=== PATIENT | male | born 1955 ===

== ENCOUNTER 2024-04-28 08:16 | Inpatient (IN) | payer OTHER ==
[2024-04-28 08:59] LABS: URINE APPEARANCE Clear; URINE BILIRRUBIN Negative (NEGATIVE); URINE BLOOD Negative; URINE COLOR Yellow; URINE GLUCOSE Negative (NEGATIVE); URINE KETONE Trace (NEGATIVE); URINE LEUKOCYTE Negative; URINE NITRATE Negative; URINE PROTEIN Negative (NEGATIVE); URINE UROBILINOGEN 0.2 E.U./dl
[2024-04-28 09:01] LABS: URINE RBC 4.2 uL (0.0-20.8); URINE WBC 2.1 uL (0.0-23.2)
[2024-04-28 09:02] LABS: HEMATOCRIT 41.1 % (39.0-48.0); HEMOGLOBIN 13.8 g/dL (13-16.00); MEAN CELL VOLUME 94.7 fL (80.0-100.00); MEAN CORPUSCULAR HEMOGLOBIN 31.9 pg (27.00-32.0); MEAN CORPUSCULAR HGB CONC 33.7 g/dl (32.0-36.0); PLATELET COUNT 203 K/uL (150-450); RED BLOOD COUNT 4.34 M/uL (4.00-6.00); RED CELL DISTRIBUTION WIDTH 13.1 % (11.5-14.5)
[2024-04-28 09:02] LABS: URINE EPITHELIAL CELLS 0.9 uL (0.0-38.8)
[2024-04-28 09:24] LABS: INR 1.09; PARTIAL THROMBOPLASTIN TIME 29.9 SECONDS (22.0-34.0); PROTHROMBIN TIME 11.8 SECONDS (9.0-11.5)
[2024-04-28 09:38] LABS: ALBUMIN 4.1 gm/dL (3.4-5.0); BILIRUBIN TOTAL 0.69 mg/dL (0.3-1.2); CALCIUM 9.4 mg/dL (8.5-10.1); CREATININE SERUM 0.99 mg/dL (0.70-1.30); GFR 74.73; GLOBULINA 2.9 G/DL (2.4-3.5); POTASSIUM 4.09 mEq/L (3.5-5.1)
[2024-04-28 09:40] VITALS: BP 133/80
[2024-05-04] MEDS ORDERED: DEXAMETHASONE SODIUM PHOSPHATE 4 MG/ML VIAL ONE (10:00)
[2024-05-04] MEDS ORDERED: ENALAPRILAT DIHYDRATE 1.25 MG/ML VIAL IV PRN (15:15)
[2024-05-04] MEDS ORDERED: ONDANSETRON HCL 2 MG/ML VIAL IV PRN (15:15)
[2024-05-04 16:42] LABS: ALBUMIN 3.8 gm/dL (3.4-5.0); CALCIUM 9.1 mg/dL (8.5-10.1); CREATININE SERUM 0.82 mg/dL (0.70-1.30); GFR 92.88; PHOSPHOROUS 2.6 mg/dL (2.5-4.9); POTASSIUM 4.11 mEq/L (3.5-5.1)
[2024-05-04] MEDS ORDERED: CYCLOBENZAPRINE HCL 5 MG TABLET PO SCH (17:00)
[2024-05-04] MEDS ORDERED: ACETAMINOPHEN 500 MG GEL..CAP PO SCH (17:00)
[2024-05-04 19:00] VITALS: BP 133/80; O2SAT 95
[2024-05-04] MEDS ORDERED: TRAMADOL HCL 50 MG TABLET PO SCH (20:00)
[2024-05-04] MEDS ORDERED: Calcium Carbonate 1 TAB TABLET PO SCH (21:00)
[2024-05-05 00:49] VITALS: BP 120/62; O2SAT 99
[2024-05-05] MEDS ORDERED: LEVOTHYROXINE SODIUM 88 MCG TABLET PO SCH (06:00)
[2024-05-05 08:00] VITALS: BP 147/70; O2SAT 98
== END 2024-05-05 13:55 | disposition home or self-care (01) | DRG 627 ==
LOC: O/R 05-04 05:26 → SURH 05-04 08:30 → SURG 05-04 15:16 → SURH 05-04 15:51
PROVIDERS: ADMIT Surgery; ATTEND Surgery
PROC: 0GTG0ZZ Resection of Left Thyroid Gland Lobe, Open Approach (ICD-10-PCS; principal; 2024-05-04 10:45)
DX: C73 Malignant neoplasm of thyroid gland (principal); Z20.822 Contact with and (suspected) exposure to COVID-19